=== PATIENT | female | born 1990 | race Caucasian/White ===

== ENCOUNTER → 2016-10-11 | Outpatient (CLI) | payer OTHER | LOC: RAD 13:44 | PROVIDERS: ATTEND Obstetrics & Gynecology | DX: N97.9 Female infertility, unspecified (principal) | CPT/HCPCS: 58340; 74740 ==

== ENCOUNTER → 2017-08-28 | Outpatient (CLI) | payer MEDICAID ==
--- NOTE | 2017-08-28 15:21 | RADIOLOGY REPORT (SQ) ---
EXAM DESCRIPTION: U/S [id number] TRNABD 1GES W/ODOP COMPLETED DATE/TIME: 08/28/2017 3:03 pm REASON FOR STUDY: ENCTR FOR SUPERVISION OF NORMAL 1ST , 1ST TRIMESTER (Z34.01) Z34.01 ENCN TR FOR SUPRVSN OF NORMAL FIRST PREG, FIRST TRIMES COMPARISON: None. TECHNIQUE: Transabdominal static and realtime grayscale images acquired of the pelvis. Additional se lected spectral and color Doppler images recorded. All images stored on PACs. bHCG: Back given LIMITATIONS: None. FINDINGS: FETUS: Living intrauterine . EGA: 8 weeks 5 days VIRIDIANA: 04/04/2018 FHR: 178 beats per minute. SUBCHORIONIC BLEED: No. SIZE OF BLEED: Not applicable. UTERUS: The uterus measures 8.4 x 6.4 x 5.2 cm intrauterine gestational sac and yolk sac visualized. [place]-rump length obtained. CERVICAL LENGTH: Not obtained. RIGHT ADNEXA: Not visualized sonographically. LEFT ADNEXA: Not visualized sonographically. FREE FLUID: None. OTHER: No other significant finding. IMPRESSION: 1. LIVING INTRAUTERINE . EGA 8 weeks 5 days 2. Neither ovary is identified sonographically. Trimester of : First - 0 to 13 weeks. TECHNICAL DOCUMENTATION: JOB ID: [id number] [employer]- All Rights Reserved Reading location - IP/workstation name: [email or web address]
== END ==
LOC: RAD 13:32
PROVIDERS: ATTEND Nurse Practitioner Women's Health
DX: Z34.01 Encounter for supervision of normal first pregnancy, first trimester (principal)
CPT/HCPCS: 76801

== ENCOUNTER 2018-02-27 15:02 | Outpatient (CLI) | payer MEDICAID ==
--- NOTE | 2018-02-27 16:14 | Non Stress Test Report ---
Non Stress Test Datetime Report Generated by CPN: 02/27/2018 16:14 DEMOGRAPHIC EGA NST: 35.5 INDICATION Indication for Study: Diabetes Mellitus; Ordered by Provider VITAL SIGNS Temperature - NST: 98.2 Pulse - NST: 74 RESP - NST: 18 NBPSYS NST: 101 NBPDIA NST: 55 MONITORING Monitor Explained: Monitor Explained; Test Explained; Patient Verbalized Understanding Time on Monitor: 02/27/2018 15:12 Time off Monitor: 02/27/2018 15:59 NST Duration: 47 NST INTERVENTIONS NST Interventions: PO Hydration; Reposition Patient Physician Notified NST: N Park CNM BABY A: [id number] BABY A Movement : Present Contraction Frequency : rare FHR Baseline : 125 Accelerations : 15X15 Decelerations : None Variability : Moderate 6-25bpm NST Review: Meets Criteria for Reactive NST NST Review and Verified By : Kat Fisher RN NSSusi Results: Reactive NST REPORT Report Trigger: Send Report
== END 2018-02-27 16:06 | disposition home or self-care (01) ==
LOC: LC 15:02
PROVIDERS: ATTEND Obstetrics & Gynecology
PROC: 4A1HXCZ Monitoring of Products of Conception, Cardiac Rate, External Approach (ICD-10-PCS; principal; 2018-02-27)
DX: O24.913 Unspecified diabetes mellitus in pregnancy, third trimester (principal); Z3A.35 35 weeks gestation of pregnancy
CPT/HCPCS: 59025

== ENCOUNTER 2018-03-19 14:57 | Outpatient (CLI) | payer MEDICAID | END 2018-03-19 15:32 | disposition home or self-care (01) | LOC: LC 14:57 | PROVIDERS: ATTEND Obstetrics & Gynecology Gynecology | PROC: 4A1HXCZ Monitoring of Products of Conception, Cardiac Rate, External Approach (ICD-10-PCS; principal; 2018-03-19) | DX: O24.419 Gestational diabetes mellitus in pregnancy, unspecified control (principal); Z3A.38 38 weeks gestation of pregnancy ==

== ENCOUNTER 2018-04-03 19:16 | Inpatient (IN) | payer MEDICAID ==
--- NOTE | 2018-04-03 19:21 | Non Stress Test Report ---
Non Stress Test Datetime Report Generated by CPN: 04/03/2018 19:20 DEMOGRAPHIC EGA NST: 38.4 INDICATION Indication for Study: Diabetes Mellitus; Ordered by Provider VITAL SIGNS Temperature - NST: 98.6 Pulse - NST: 78 RESP - NST: 18 NBPSYS NST: 93 NBPDIA NST: 51 MONITORING Monitor Explained: Monitor Explained; Test Explained; Patient Verbalized Understanding Time on Monitor: 03/19/2018 15:07 Time off Monitor: 03/19/2018 15:28 NST Duration: 21 NST INTERVENTIONS NST Interventions: PO Hydration; Reposition Patient Physician Notified NST: J, MORGAN CNM REVIEWED STRIP BABY A: [id number] BABY A Movement : Present Contraction Frequency : NONE FHR Baseline : 135 Accelerations : 15X15 Variability : Moderate 6-25bpm NST Review: Meets Criteria for Reactive NST NST Review and Verified By : GHISLAINE MOURA RN NST Results: Reactive NST REPORT Report Trigger: Send Report
[2018-04-03] MEDS ORDERED: RINGERS SOLUTION,LACTATED 1,000 ML IV ONE (19:53)
[2018-04-03] MEDS ORDERED: DINOPROSTONE 10 MG VAGINAL INSERT.SR PV ONE (19:55)
[2018-04-03] MEDS ORDERED: ACETAMINOPHEN 325 MG TABLET PO PRN (19:56)
[2018-04-03] MEDS ORDERED: MAG HYDROX/AL HYDROX/SIMETH SUSP 30 ML UDCUP PO PRN (19:56)
[2018-04-03 19:57] LABS: APPEARANCE,URINE CLOUDY; BILIRUBIN,URINE NEGATIVE (NEGATIVE); COLOR,URINE YELLOW; GLUCOSE, URINE NEGATIVE (NEGATIVE); KETONES,URINE TRACE mg/dL (NEGATIVE); LEUKOCYTE ESTERASE,URINE SMALL (NEGATIVE); NITRITE,URINE NEGATIVE (NEGATIVE); PROTEIN,URINE 30 mg/dL (NEGATIVE); URINE SPECIFIC GRAVITY 1.026; UROBILINOGEN,URINE NEGATIVE mg/dL (<2.0)
[2018-04-03 20:21] LABS: URINE AMPHETAMINES SCREEN NEGATIVE; URINE BARBITURATES SCREEN NEGATIVE; URINE BENZODIAZEPINES SCREEN NEGATIVE; URINE COCAINE SCREEN NEGATIVE; URINE MARIJUANA (THC) SCREEN NEGATIVE; URINE METHADONE SCREEN NEGATIVE; URINE PHENCYCLIDINE SCREEN NEGATIVE
[2018-04-03] MEDS ORDERED: DINOPROSTONE 10 MG VAGINAL INSERT.SR ONE (20:33)
[2018-04-03 20:35] LABS: ABSOLUTE EOSINOPHILS # (AUTO) 0.1 10^3/uL (0.0-0.6); ABSOLUTE LYMPHOCYTES (AUTO) 2.4 10^3/uL (0.5-4.7); ABSOLUTE MONOCYTES (AUTO) 0.7 10^3/uL (0.1-1.4); ABSOLUTE NEUT (AUTO) 9.8 10^3/uL (1.7-8.2); BASOPHILS % (AUTO) 0.3 % (0-2); EOSINOPHILS % (AUTO) 0.7 % (0-6); HEMATOCRIT 34.4 % (36.0-47.0); HEMOGLOBIN 12.2 g/dL (12.0-15.5); LYMPHOCYTES % (AUTO) 18.4 % (13-45); MEAN CORPUSCULAR HEMOGLOBIN 31.8 pg (27.0-33.4); MEAN CORPUSCULAR HGB CONC 35.4 g/dL (32.0-36.0); MEAN CORPUSCULAR VOLUME 90 fl (80-97); MONOCYTES % (AUTO) 5.2 % (3-13); PLATELET COUNT 215 10^3/uL (150-450); RED BLOOD COUNT 3.82 10^6/uL (3.72-5.28); RED CELL DISTRIBUTION WIDTH 12.8 % (11.5-14.0); SEGMENTED NEUTROPHILS % (AUTO) 75.4 % (42-78); TOTAL CELLS COUNTED % (AUTO) 100 %; WHITE BLOOD COUNT 12.9 10^3/uL (4.0-10.5)
[2018-04-04] MEDS: RINGERS SOLUTION,LACTATED 1,000 ML IV PRN ×2 (06:15→17:26)
--- NOTE | 2018-04-04 07:15 | Admission Physical ---
Datetime Report Generated by CPN: 04/04/2018 07:14 CURRENT ADMISSION Chief Complaint: Scheduled Induction of Labor Indication for Induction: Post Dates; Maternal Diabetes Admit Impression : Term, Intrauterine ; Induction of Labor Admit Plan: Admit to Unit; Initiate Labor Induction Protocol ALLERGIES Medication Allergies: No Medication Allergies: No Known Allergies (04/03/2018) Latex: No Latex Allergies Food Allergies: N/A Environmental Allergies: N/A OBSTETRICAL HISTORY EDC: 03/29/2018 00:00 : 1 Para: 0 Term: 0 : 0 SAB: 0 IAB: 0 Ectopic: 0 Livin Cesareans: 0 VBACs: 0 Multiple Births: 0 Gestational Diabetes: Yes Rh Sensitization: No Incompetent Cervix: No DOREEN: No Infertility: No ART Treatment: No Uterine Anomaly: No IUGR: No Hx Previous C/S: No Macrosomia: No Hx Loss/Stillborn: No PIH: No Hx : No Placenta Previa/Abruption: No Depression/PP Depression: No PTL/PROM: No Post Hemorrhage: No Current Procedures: Ultrasound; NST Obstetrical History Comments: G1- current SEE RECORDS Alcohol: No Marijuana : No Cocaine: No Other Illicit Drugs: No Cigarettes: Never Smoker. 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: No Heart Disease: No Hosp/Surgery: No Autoimmune Disorder: No Anesthetic Complications: No Kidney Disease: No Abnormal Pap Smear: No Neuro/Epilepsy: No Psychiatric Disorders: No Other Medical Diseases: No Hepatitis/Liver Disease: No Significant Family History: No Varicosities/Phlebitis: No Trauma/Violence : No Thyroid Dysfunction: No Medical History Comments: PCOS INFECTIOUS HISTORY Gonorrhea: No Genital Herpes: No Chlamydia: No Tuberculosis: No Syphilis: No Hepatitis: No HIV/AIDS Exposure: No Rash or Viral Illness: No HPV: No PHYSICAL EXAM General: Normal HEENT: Normal Neurologic: Normal Thyroid: Normal Heart: Normal Lungs: Normal Breast: Normal Back: Normal Abdomen: Normal Genitourinary Exam: Normal Extremities: Normal DTRs: Normal Pelvic Type: Adequate Vital Signs: Reviewed; Within Normal Limits VAGINAL EXAM Dilatation: 1 Effacement: 50 Station: -1 MEMBRANES Pooling: Negative Membranes: Intact FETUS A EGA: 40.6 Monitoring: External US FHR- Baseline: 120 Variability: Moderate 6-25bpm Accelerations: 15X15 Decelerations: None FHR Category: Category I Estimated Weight (gm): 3600 Presentation: Vertex PLANS FOR LABOR AND DELIVERY Labor and Delivery: None Pain Management: Medications; Epidural Feeding Preference: Breast Benefit of Breast Feed Discussed: Yes Circumcision: No INFORMED CONSENT Signature: with User ID: [email or web address]
[2018-04-04] MEDS ORDERED: OXYTOCIN/NORMAL SALINE 20 UNIT/1,000 ML RTUINJ ONE (10:09)
[2018-04-04] MEDS ORDERED: FENTANYL CITRATE INJ/PF 100 MCG/2 ML AMPUL IV ONE (10:40)
[2018-04-04] MEDS ORDERED: FENTANYL CITRATE INJ/PF 100 MCG/2 ML AMPUL ONE (10:41)
[2018-04-04] MEDS: ZOLPIDEM TARTRATE 5 MG TABLET PO SCH (17:06)
[2018-04-04] MEDS ORDERED: OXYTOCIN/NORMAL SALINE 20 UNIT/1,000 ML RTUINJ IV PRN (20:13)
--- NOTE | 2018-04-04 20:45 | L&D Progress Notes ---
PROGRESS NOTES Datetime Report Generated by CPN: 04/04/2018 20:44 PROGRESS NOTE Plan: Cervical Ripening Comment: She has not made change since the casillas bulb fell out. Exam is firm 3-4 cm and long. We discussed options of continuing the pitocin vs pitocin break, eating and repeat cervadil. She would like to repeat the cervadil. We will resume the pitocin in the morning. VAGINAL EXAM Dilatation: 1 Effacement: 50 Station: -1 MEMBRANES Pooling: Negative Membranes: Intact FETUS A : 40.6 Estimated Weight (gm): 3600 Presentation: Vertex SIGNATURE SIGNATURE: [id number] SIGNATURE: [id number] SIGNATURE: [id number] SIGNATURE: ,[id number] Signature: with User ID: [email or web address]
[2018-04-04] MEDS ORDERED: DINOPROSTONE 10 MG VAGINAL INSERT.SR ONE (23:15)
[2018-04-05] MEDS ORDERED: ZOLPIDEM TARTRATE 5 MG TABLET ONE (00:39)
--- NOTE | 2018-04-05 13:52 | L&D Progress Notes ---
PROGRESS NOTES Datetime Report Generated by CPN: 04/05/2018 13:52 PROGRESS NOTE Impression: Reassuring Heart Rate Procedures: Artificial ROM; Sterile Vag Exam Plan: Continue Present Management Vital Signs : Reviewed; Within Normal Limits Comment: SVE with AROM. Cervix still firm. Continue IOL. VAGINAL EXAM Dilatation: 4 Effacement: 50 Station: -2 MEMBRANES Membranes: Ruptured Amniotic Fluid Color: Clear FETUS A FHR - Baseline: 135 Monitoring: External US Variability: Moderate 6-25bpm Accelerations: 15X15 Decelerations: None FHR Category: Category I : 41.0 FETUS C SIGNATURE: 13,[id number];14,[id number];10,[id number] Assignment: Chidi Potts MD Signature: with User ID: [email or web address] : with User ID: [email or web address] : I personally evaluated and examined the patient in conjunction with the MLP and agree with the assessment, treatment plan and disposition.
[2018-04-05] MEDS ORDERED: OXYTOCIN 10 UNIT/ML VIAL ONE (15:06)
[2018-04-05] MEDS ORDERED: MISOPROSTOL 0.2 MG TABLET ONE (15:06)
[2018-04-05] MEDS ORDERED: EPHEDRINE SULFATE INJ 50 MG/1 ML AMPULE ONE (15:06)
[2018-04-05] MEDS ORDERED: FENTANYL/BUPIVACAINE/NS/PF 300 MCG/150 ML RTUINJ EPI ONE (15:07)
[2018-04-05] MEDS ORDERED: OXYTOCIN/NORMAL SALINE 0 UNIT/0 ML RTUINJ ONE (15:07)
[2018-04-05] MEDS ORDERED: LIDOCAINE 1% INJ-PF (10 MG/ML) 30 ML SDV ONE (15:07)
[2018-04-05] MEDS ORDERED: BUPIVACAINE HCL 0.5 % INJ/PF 30 ML SDV ONE (15:08)
[2018-04-05] MEDS ORDERED: ACETAMINOPHEN 325 MG TABLET ONE (23:34)
[2018-04-05] MEDS ORDERED: ACETAMINOPHEN 325 MG TABLET PO ONE (23:36)
[2018-04-06] MEDS ORDERED: MAG HYDROX/AL HYDROX/SIMETH SUSP 30 ML UDCUP ONE ×2 (00:02)
[2018-04-06] MEDS ORDERED: FENTANYL/BUPIVACAINE/NS/PF 300 MCG/150 ML RTUINJ EPI ONE (04:02)
[2018-04-06] MEDS ORDERED: OXYTOCIN/NORMAL SALINE 20 UNIT/1,000 ML RTUINJ ONE ×2 (07:31→15:17)
[2018-04-06] MEDS ORDERED: GENTAMICIN SULFATE INJ 80 MG/2 ML VIAL IV ONE (12:02)
[2018-04-06] MEDS ORDERED: GENTAMICIN SULFATE INJ 80 MG/2 ML VIAL IV PRN (12:10)
[2018-04-06] MEDS ORDERED: AMPICILLIN SOD INJ 2 GM VIAL IV PRN (12:13)
[2018-04-06] MEDS ORDERED: AMPICILLIN SOD INJ 2 GM VIAL IV SCH (12:15)
[2018-04-06] MEDS ORDERED: AMPICILLIN SOD INJ 2 GM VIAL ONE (12:15)
--- NOTE | 2018-04-06 12:27 | L&D Progress Notes ---
PROGRESS NOTES Datetime Report Generated by CPN: 04/06/2018 12:27 PROGRESS NOTE Impression: Normal Progression of Labor; Reassuring Heart Rate Impression Other: pushing x 2 hours now. Axillary Temp 100.5 Procedures: Sterile Vag Exam Plan: Continue Present Management Plan Other: continue pushing,Start Ampicillin and Gentamicin antibiotics. Vital Signs : Reviewed; Within Normal Limits Comment: Pt feeling increased pressure, good maternal effort with pushing. Baby feels DOP presentation. Dr Alvarado updated to pts condition. Plan to continue with pushing and anticipate MEMBRANES Membranes: Ruptured FETUS A FHR - Baseline: 145 Monitoring: External US Variability: Moderate 6-25bpm Accelerations: 15X15 Decelerations: None FETUS C SIGNATURE: [id number];[id number];13,[id number] Assignment: Jenna Alvarado MD Signature: with User ID: [email or web address] : with User ID: [email or web address]
[2018-04-06] MEDS ORDERED: DIPH/PERTUSS(ACELL)/TETANUS VAC/PF 0.5 ML SYR (>=10YO) IM PRN (14:51)
[2018-04-06] MEDS ORDERED: DIBUCAINE 1% OINTMENT 28 GM TP PRN (14:51)
[2018-04-06] MEDS ORDERED: BENZOCAINE/MENTHOL AEROSOL SPRAY 56 ML TOP PRN (14:51)
[2018-04-06] MEDS ORDERED: ZOLPIDEM TARTRATE 5 MG TABLET PO PRN (14:51)
[2018-04-06] MEDS ORDERED: ACETAMINOPHEN WITH CODEINE #3 TABLET PO PRN (14:51)
[2018-04-06] MEDS ORDERED: OXYTOCIN/NORMAL SALINE 20 UNIT/1,000 ML RTUINJ IV PRN (14:51)
[2018-04-06] MEDS ORDERED: MEASLES,MUMPS&RUBELLA VACC/PF 0.5 ML VIAL SUBCUT PRN (14:51)
[2018-04-06] MEDS ORDERED: LIDOCAINE 1% INJ-PF (10 MG/ML) 30 ML SDV ONE (15:10)
[2018-04-06] MEDS ORDERED: GENTAMICIN SULFATE IV ONE (17:00)
[2018-04-06] MEDS ORDERED: DEXTROSE 5% IV ONE (17:00)
[2018-04-06] MEDS ORDERED: WATER IV ONE (17:00)
[2018-04-06] MEDS ORDERED: FERROUS SULFATE 325 MG TABLET PO SCH (18:00)
[2018-04-06] MEDS: ZOLPIDEM TARTRATE 5 MG TABLET PO SCH ×2 (18:12→18:16)
[2018-04-06] MEDS: DOCUSATE SODIUM 100 MG CAPSULE PO SCH (18:15)
[2018-04-06] MEDS: GENTAMICIN SULFATE 120 MG in DEXTROSE 5%-WATER 100 ML IV SCH ×2 (18:18→18:19)
[2018-04-06] MEDS: ACETAMINOPHEN WITH CODEINE #3 TABLET PO PRN ×2 (18:30→22:05)
--- NOTE | 2018-04-06 19:42 | Delivery Summary ---
Del Sum A-C Datetime Report Generated by CPN: 04/06/2018 19:42 DELIVERY PERSONNEL DELIVERY PERSONNEL: [id number] Delivery Doctor:: Jenna Alvarado MD Anesthesiologist:: Bunny Gibson MD Labor and Delivery Nurse:: Shahab Chávez RNmarine animal trainer Nurse:: Jannette Rodriguez RN Gas Plant Specialist:: ALEJANDRA [place] Net Fisher/SOAKING PIT OPERATOR: Melida Rodriguez, ST Net Fisher/SOAKING PIT OPERATOR: Eckert, Ariana, ST MATERNAL INFORMATION Delivery Anesthesia: Epidural; Pudendal Medications After Delivery: Pitocin 10 Units IM; Pitocin Drip 20 Units/1000ml NSS Meds After Delivery Comment: additional 20units pitocin in 1000 ns Estimated Blood Loss (ml): 509 Maternal Complications: Chorioamnionitis; Maternal Fever; Prolonged Second Stage > 2 Hrs Provider Comments: Pt pushing for approximately 4 hours and now making progress and baby is rotating and descending. C/C/+3 and patient consented for Outlet forceps due to maternal exhaustion. Bladder drained and position of baby OA confirmed. Carrillo Leukharts placed easily and 2 push/pulls performed and head easily then forceps removed and infant delivered easily with next maternal push. Shoulders and body delivered without difficulty. cord doubly clamped and cut. Placenta delivered intact spontaneously. FF at U. 3rd degree perineal laceration repaired in usual fashion. 3A perineal laceration. Good hemostasis post repair. Mother and baby stable upon provider leaving the room. LABOR SUMMARY EDC: 03/29/2018 00:00 No. Babies in Womb: 1 Attempted: No Labor Anesthesia: Epidural LABOR INFORMATION Reason for Induction: Post Dates; Maternal Diabetes Onset of Labor: 04/06/2018 06:04 Complete Dilatation: 04/06/2018 09:18 Cervical Ripening Agents: Cervidil Oxytocin: Induction Group B Beta Strep: Negative Antibiotics # of Doses: 1 Name of Antibiotic Given: amp Steroids Given: None Reason Steroids Not Administered: Not Applicable MEMBRANES Membranes Rupture Method: Artificial Rupture of Membranes: 04/05/2018 13:46 Length of Rupture (hr): 25.03 Amniotic Fluid Color: Clear Amniotic Fluid Amount: Small Amniotic Fluid Odor: Normal STAGES OF LABOR Stage 1 hr: 3 Stage 1 min: 14 Stage 2 hr: 5 Stage 2 min: 30 Stage 3 hr: 0 Stage 3 min: 6 Total Time in Labor hr: 8 Total Time in Labor min: 50 VAGINAL DELIVERY Episiotomy: None Laceration #1: Perineal Laceration Extension #1: Third Degree, IIIa (Less than 50 percent ext anal sphincter thickness torn) Laceration Repair: Yes Laceration Repair Note: 3rd degree laceration repaired in usual fashion. Sponge Count Correct: N/A CSECTION DELIVERY Primary Indication: N/A Secondary Indication: N/A CSection Incidence: N/A Labor: N/A Elective: N/A CSection Incision: N/A BABY A INFORMATION Infant Delivery Date/Time: 04/06/2018 14:48 Method of Delivery: Vaginal Born in Route : No : N/A Forceps: Outlet Vacuum Extraction: N/A Shoulder Dystocia : No PRESENTATION/POSITION BABY A Presentation: Cephalic Cephalic Presentation: Vertex Vertex Position: Left Occipital Anterior Breech Presentation: N/A PLACENTA INFORMATION BABY A Placenta Delivery Time : 04/06/2018 14:54 Placenta Method of Delivery: Spontaneous Placenta Status: Delivered SCORES BABY A Heart Rate 1 min: >100 bpm Resp Effort 1 min: Good Cry Reflex Irritability 1 min: Cough or Sneeze or Pulls Away Muscle Tone 1 min: Some Flexion of Extremities Color 1 min: Body [place], Extremities Blue Resuscitation Effort 1 min: Tactile Stimulation SCORE 1 MIN: 8 Heart Rate 5 min: >100 bpm Resp Effort 5 min: Good Cry Reflex Irritability 5 min: Cough or Sneeze or Pulls Away Muscle Tone 5 min: Active Motion Color 5 min: Body [place], Extremities Blue Resuscitation Effort 5 min: N/A SCORE 5 MIN: 9 INFANT INFORMATION BABY A Gestational Age at Delivery: 41.1 Gestational Status: Late Term- 41- 41.6 Weeks Infant Outcome : Liveborn Condition : Stable Infant Sex: Male IDENTIFICATION BABY A Infant Verification Date/Time: 04/06/2018 15:03 ID Band Number: [id number] Mother's Name Verified: Yes Infant RN Verifying Infant: [email or web address] Rn Additional Verifying Personnel: Melchor England RNC WEIGHT/LENGTH BABY A Infant Birthweight (gm): 3040 Infant Weight (lb): 6 Infant Weight (oz): 11 Length (in): 19.50 Length (cm): 49.53 CORD INFORMATION BABY A No. Cord Vessels: 3 Nuchal Cord : N/A Cord Blood Taken: Yes-For Storage (Mom's Blood type +) Suction: None BABY B INFORMATION : N/A SIGNATURES Signature: with User ID: [email or web address] : I personally evaluated and examined the patient in conjunction with the MLP and agree with the assessment, treatment plan and disposition.
[2018-04-06] MEDS: IBUPROFEN 800 MG TABLET PO SCH (21:09)
[2018-04-06] MEDS: CLINDAMYCIN 900 MG/D5W RTU 900 MG/50 ML RTUPB IV SCH (21:10)
[2018-04-07] MEDS: GENTAMICIN SULFATE 120 MG in DEXTROSE 5%-WATER 100 ML IV SCH ×3 (01:07→17:48)
[2018-04-07] MEDS: CLINDAMYCIN 900 MG/D5W RTU 900 MG/50 ML RTUPB IV SCH ×2 (05:37→13:59)
[2018-04-07] MEDS: IBUPROFEN 800 MG TABLET PO SCH ×3 (05:37→21:28)
[2018-04-07] MEDS: SENNOSIDES/DOCUSATE 8.6-50 MG 1 EACH TABLET PO SCH (10:10)
[2018-04-07] MEDS: PRENATAL VITAMIN W DHA CAPSULE PO SCH (10:10)
[2018-04-07] MEDS: DOCUSATE SODIUM 100 MG CAPSULE PO SCH ×2 (10:10→17:48)
--- NOTE | 2018-04-07 10:15 | PDOC PROGRESS REPORT ---
Subjective-OB Progress Note for:: 04/07/18 Subjective: PP Day #1, , doing well this morning, no complaints. S/P forcep delivery w/ 3rd degree laceration. Fever during labor, tx'd w/ antibiotics. Physical Exam (OB) Vital Signs: Temp Pulse Resp BP Pulse Ox 98.6 F 56 L 16 113/55 L 99 04/06/18 19:33 04/06/18 19:33 04/06/18 19:33 04/06/18 19:33 04/06/18 19:33 Intake & Output 04/06/18 04/07/18 04/08/18 06:59 06:59 06:59 Intake Total 1253.9 50 Balance 1253.9 50 - General General Appearance: Appears well, Alert In distress: None - Lochia Lochia Amount: Small 10-25 ml Lochia Color: Rubra/Red - Abdomen Description: Soft Fundal Description: Firm Fundal Height: u/u - u/2 - Respiratory Respiratory Status: No respiratory distress - Abdominal Inspection: Normal Distension: No distension Tenderness: Nontender - Genitourinary Genitourinary Note: voiding - Extremities Upper extremity: Normal inspection Lower extremities: Edema - trace - Neurological Cognition: Normal Orientation: AAOx4 - Psychological Associated symptoms: Normal affect, Normal mood - Skin Skin Temperature: Warm Skin Moisture: Dry Objective-Diagnostic Laboratory: 04/03/18 20:06 Assessment and Plan(PN) - Assessment and Plan (1) Chorioamnionitis Qualifiers: Fetus number: single or unspecified fetus Is this a current diagnosis for this admission?: Yes - Time Spent with Patient Time with patient: Less than 15 minutes Medications reviewed and adjusted accordingly: Yes - Disposition Anticipated Discharge: Home Within: within 48 hours
[2018-04-07] MEDS: ACETAMINOPHEN WITH CODEINE #3 TABLET PO PRN (13:59)
[2018-04-07 16:38] LABS: HEMOGLOBIN 10.3 g/dL (12.0-15.5); MEAN CORPUSCULAR HEMOGLOBIN 30.5 pg (27.0-33.4); MEAN CORPUSCULAR HGB CONC 33.2 g/dL (32.0-36.0); MEAN CORPUSCULAR VOLUME 92 fl (80-97); PLATELET COUNT 206 10^3/uL (150-450); RED BLOOD COUNT 3.37 10^6/uL (3.72-5.28); RED CELL DISTRIBUTION WIDTH 13.2 % (11.5-14.0); WHITE BLOOD COUNT 13.9 10^3/uL (4.0-10.5)
[2018-04-08] MEDS: IBUPROFEN 800 MG TABLET PO SCH ×2 (05:45→13:59)
[2018-04-08] MEDS: ACETAMINOPHEN WITH CODEINE #3 TABLET PO PRN ×3 (06:18→15:10)
[2018-04-08] MEDS: DOCUSATE SODIUM 100 MG CAPSULE PO SCH (10:01)
[2018-04-08] MEDS: PRENATAL VITAMIN W DHA CAPSULE PO SCH (10:01)
[2018-04-08] MEDS: SENNOSIDES/DOCUSATE 8.6-50 MG 1 EACH TABLET PO SCH (10:01)
--- NOTE | 2018-04-08 10:34 | PDOC DISCHARGE SUMMARY ---
Final Diagnosis Discharge Date: 04/08/18 - PP Day #2, doing well, afebrile x 24 hours, s/p fever in labor. s/p forcep deliery w/ 3 degree laceration. B negatvie, Rubella immmune, - Final Diagnosis (1) Chorioamnionitis Is this a current diagnosis for this admission?: Yes Discharge Data - Discharge Medication Home Medications: Vits96/Iron Fum/Folic [ Tablet] 1 each PO DAILY 02/27/18 Reason(s) for Admission: Onset of Labor, Obstetric Complications Procedures: Ultrasound Intrapartum Procedure(s): Forceps-Low Complication(s): Laceration-Vaginal Laceration-Degree: 3rd - Diagnosis Test Laboratory: Temp Pulse Resp BP Pulse Ox 98.3 F 63 16 113/59 L 98 04/07/18 20:09 04/07/18 20:09 04/07/18 20:09 04/07/18 20:09 04/07/18 20:09 04/03/18 04/03/18 04/07/18 19:33 20:06 16:20 RBC 3.82 3.37 L Hgb 12.2 10.3 L Hct 34.4 L 31.0 L Urine Opiates Screen NEGATIVE - Discharge information/Instructions Discharge Activity: Activity As Tolerated, No Lifting Over 10 Pounds, Pelvic Rest Discharge Diet: As Tolerated, Regular Disposition: HOME, SELF-CARE Follow up with: [facility] in: 1, Weeks - with Dr Alvarado for evaluation of vaginal laceration
[2018-04-08 11:09] VITALS: BP 114/71
== END 2018-04-08 16:20 | disposition home or self-care (01) | DRG 768 ==
LOC: LR 19:16 → 2S 04-06 17:50
PROVIDERS: ADMIT Student in an Organized Health Care Education/Training Program; ATTEND Student in an Organized Health Care Education/Training Program
PROC: 10D07Z4 Extraction of Products of Conception, Mid Forceps, Via Natural or Artificial Opening (ICD-10-PCS; principal; 2018-04-06)
PROC: 0DQR0ZZ Repair Anal Sphincter, Open Approach (ICD-10-PCS; 2018-04-06)
DX: O48.0 Post-term pregnancy (principal); Z37.0 Single live birth; O41.1230 Chorioamnionitis, third trimester, not applicable or unspecified; O70.21 Third degree perineal laceration during delivery, IIIa; O24.429 Gestational diabetes mellitus in childbirth, unspecified control; O75.81 Maternal exhaustion complicating labor and delivery; O63.1 Prolonged second stage (of labor); Z3A.40 40 weeks gestation of pregnancy
CPT/HCPCS: 36415; 80307; 81005; 85025; 85027; 86592; 86850; 86900; 86901; 88307; J0290; J1580; J2590; J3010; J3490